=== PATIENT | male | born 1990 | race Two or more races ===

== ENCOUNTER 2016-12-14 20:33 | Emergency (ER) | payer MEDICAID ==
[~2016-12-14] VITALS: Ht 175.3 cm; Wt 102.1 kg
[2016-12-14 20:45] VITALS: BP 132/70
== END 2016-12-14 23:38 | disposition home or self-care (01) ==
LOC: ER 20:36
DX: S30.861A Insect bite (nonvenomous) of abdominal wall, initial encounter (principal); F17.210 Nicotine dependence, cigarettes, uncomplicated; L03.311 Cellulitis of abdominal wall; L08.9 Local infection of the skin and subcutaneous tissue, unspecified; W57.XXXA Bitten or stung by nonvenomous insect and other nonvenomous arthropods, initial encounter; Y93.89 Activity, other specified; Y92.89 Other specified places as the place of occurrence of the external cause; Y99.8 Other external cause status

== ENCOUNTER 2017-05-30 04:08 | Emergency (ER) | payer MEDICAID ==
[~2017-05-30] VITALS: Ht 175.3 cm; Wt 99.8 kg
[2017-05-30 12:15] VITALS: BP 152/92
== END 2017-05-30 13:01 | disposition home or self-care (01) ==
LOC: ER 04:11
DX: J02.8 Acute pharyngitis due to other specified organisms (principal); J20.9 Acute bronchitis, unspecified; F17.210 Nicotine dependence, cigarettes, uncomplicated; R07.89 Other chest pain
CPT/HCPCS: 71046; 87400

== ENCOUNTER 2018-01-25 00:37 | Emergency (ER) | payer MEDICAID ==
[~2018-01-25] VITALS: Ht 172.7 cm; Wt 97.5 kg
[2018-01-25 00:46] VITALS: BP 145/85
[2018-01-25] MEDS ORDERED: NAPROXEN 500 MG TAB PO ONE (02:00)
== END 2018-01-25 02:19 | disposition home or self-care (01) ==
LOC: ER 00:40
DX: S52.91XA Unspecified fracture of right forearm, initial encounter for closed fracture (principal); F17.210 Nicotine dependence, cigarettes, uncomplicated; W21.01XA Struck by football, initial encounter; Y93.61 Activity, american tackle football; Y92.89 Other specified places as the place of occurrence of the external cause; Y99.8 Other external cause status
CPT/HCPCS: 29125; 73090

== ENCOUNTER 2018-06-17 14:00 | Emergency (ER) | payer MEDICAID ==
[~2018-06-17] VITALS: Ht 172.7 cm; Wt 99.8 kg
[2018-06-17] MEDS ORDERED: LORazepam 2MG/ML-1ML VIAL IV ONE (14:15)
[2018-06-17] MEDS ORDERED: ONDANSETRON HCL 4 MG/2 ML VIAL IV ONE ×2 (14:15→17:30)
[2018-06-17] MEDS ORDERED: SODIUM CHLORIDE 0.9% 1,000 ML IVB ONE (14:15)
[2018-06-17 14:53] LABS: Alanine Aminotransferase 143 U/L (16-61); Albumin 4.9 g/dL (3.4-5.0); Anion Gap 16 (5-15); Blood Urea Nitrogen 10 mg/dL (7-18); Calcium 9.3 mg/dL (8.5-10.1); Carbon Dioxide 14 mmol/L (21-32); Chloride 111 mmol/L (98-107); Glucose 126 mg/dL (74-106); Magnesium 2.4 mg/dL (1.6-2.6); Potassium 3.7 mmol/L (3.5-5.1); Sodium 141 mmol/L (136-145)
[2018-06-17 14:56] LABS: Alkaline Phosphatase 102 U/L (45-117); Aspartate Aminotransferase 77 U/L (15-37); BUN/Creatinine Ratio 9.7; Bilirubin, Total 0.4 mg/dL (0.2-1.0); GFR African American > 60 mL/min; GFR Non-African American > 60 mL/min; Total Protein 8.2 g/dL (6.4-8.2)
[2018-06-17 15:39] LABS: Basophils # (auto) 0.1 uL; Basophils % (auto) 0.4 % (0.0-2.0); Eosinophils # (auto) 0 uL; Eosinophils % (auto) 0.1 % (0.0-7.0); Hematocrit 51.5 % (41.0-53.0); Lymphocytes % (auto) 27.7 % (10.0-50.0); Mean Corpuscular Hemoglobin 31.5 pg (28.0-32.0); Mean Corpuscular Hgb Conc. 33.1 g/dL (32.0-36.0); Mean Corpuscular Volume 95.1 fL (80.0-100.0); Monocytes # (auto) 1.1 uL; Monocytes % (auto) 7.3 % (0.0-12.0); Neutrophils # (auto) 9.4 uL; Neutrophils % (auto) 64.5 % (37.0-80.0); Nucleated Red Blood Cells % 0.1 %; Platelet Count (auto) 173 10^3/uL (140-450); Red Blood Cells 5.41 10^6/uL (4.5-5.90); Red Cell Distribution Width 13.5 % (11.8-14.3); White Blood Cell 14.5 10^3/uL (4.4-10.8)
[2018-06-17] MEDS ORDERED: ONDANSETRON HCL 4 MG/2 ML VIAL ONE (17:20)
[2018-06-17] MEDS ORDERED: PROCHLORPERAZINE EDISYLATE 5 MG/ML 2ML VIAL IV ONE (18:00)
[2018-06-17] MEDS ORDERED: PANTOPRAZOLE 40 MG/10 ML VIAL IV ONE (18:00)
[2018-06-17 20:21] VITALS: BP 99/51
[2018-06-17 20:23] LABS: Amphetamine Screen, Urine NEGATIVE (NEGATIVE); Barbiturate Scree,Urine NEGATIVE (NEGATIVE); Benzodiazephine Screen, Urine NEGATIVE (NEGATIVE); Cannabinoid Screen, Urine POSITIVE (NEGATIVE); Cocaine Screen, Urine POSITIVE (NEGATIVE); Opiate Scree,Urine NEGATIVE (NEGATIVE); Phencyclidine Screen, Urine NEGATIVE (NEGATIVE)
== END 2018-06-17 21:39 | disposition home or self-care (01) ==
LOC: ER 14:00
DX: F10.129 Alcohol abuse with intoxication, unspecified (principal); F14.10 Cocaine abuse, uncomplicated; F17.210 Nicotine dependence, cigarettes, uncomplicated; F12.10 Cannabis abuse, uncomplicated; Y90.6 Blood alcohol level of 120-199 mg/100 ml
CPT/HCPCS: 36415; 70450; 80053; 80307; 80320; 83735; 85025; 94761; 96361; 96374; 96375; 96376; 99284; C9113; J0780; J2060; J2405